=== PATIENT | male | born 1975 | race Caucasian/White ===

== ENCOUNTER 2018-09-05 14:54 | Emergency (ER) | payer SELFPAY ==
[2018-09-05] MEDS ORDERED: Adacel (T-DAP) 0.5 ML SYRINGE ONE (15:27)
--- NOTE | 2018-09-05 15:31 | RAD ---
RIGHT WRIST 3 VIEWS: HISTORY: Right wrist pain, injury FINDINGS: No acute fracture or dislocation is identified. There is an old healed fracture of the fifth metacarp al. If symptoms do not improve, a follow-up exam should be obtained in 7-10 days.
== END 2018-09-05 15:57 | disposition home or self-care (01) ==
LOC: MADERS 14:54
DX: S63.501A Unspecified sprain of right wrist, initial encounter (principal); V29.9XXA Motorcycle rider (driver) (passenger) injured in unspecified traffic accident, initial encounter
CPT/HCPCS: 90471; 90715

== ENCOUNTER 2019-09-06 12:53 | Emergency (ER) | payer OTHER, SELFPAY | END 2019-09-06 14:08 | disposition home or self-care (01) | LOC: MADERS 12:53 | DX: K02.9 Dental caries, unspecified (principal) | CPT/HCPCS: 99282 ==